=== PATIENT | female | born 1985 | race Caucasian/White ===

== ENCOUNTER 2023-04-01 18:00 | Inpatient (IN) | payer BC ==
[2023-04-01] MEDS ORDERED: HYDROcodone/Acetaminophen 5/325 mg Tablet PO PRN ×2 (22:34)
[2023-04-01] MEDS ORDERED: Diphenoxylate HCl/Atropine Tablet PO PRN ×2 (22:34)
[2023-04-01] MEDS ORDERED: Promethazine HCl 25 MG/ML VIAL IM PRN (22:34)
[2023-04-01] MEDS ORDERED: NS w/ Oxytocin 30 units 500 ML IV SCH ×2 (22:34)
[2023-04-01] MEDS ORDERED: Butorphanol Tartrate 1 MG/ML VIAL SLOW IVP PRN (22:34)
[2023-04-01] MEDS ORDERED: Misoprostol 200 MCG TAB PR PRN (22:34)
[2023-04-01] MEDS ORDERED: Lidocaine 1% (PF) 30 ML VIAL SC PRN (22:34)
[2023-04-01] MEDS ORDERED: CEFAZOLIN 2 GM in Sodium Chloride 0.9% 100 ML IVPB SCH (22:34)
[2023-04-01] MEDS ORDERED: Zolpidem Tartrate 5 MG TAB PO PRN (22:34)
[2023-04-01] MEDS ORDERED: Ibuprofen 800 MG TAB PO PRN (22:34)
[2023-04-01] MEDS ORDERED: Docusate 100 MG CAP PO PRN (22:34)
[2023-04-01] MEDS ORDERED: Acetaminophen 500 MG TAB PO PRN (22:34)
[2023-04-01 22:42] VITALS: BMI 44.4
[2023-04-01] MEDS: Lactated Ringer's 1,000 ML IV SCH (22:50)
[2023-04-01 23:13] LABS: Hemoglobin 13.8 g/dL (12.0-15.5); Mean Corpuscular HGB CONC 34.6 g/dL (32.0-36.0); Mean Corpuscular Hemoglobin 30.5 pg (27.0-33.0); Mean Corpuscular Volume 88.3 fl (81.6-98.3); Mean Platelet Volume 9.1 fl (7.4-10.4); Platelet Count 259 10x3/uL (150-450); RBC Distribution Width 14.2 % (11.5-14.5); Red Blood Cell (RBC) Count 4.52 10x6/uL (3.90-5.03); White Blood Cell (WBC) Count 8.8 10x3/uL (3.5-10.5)
[2023-04-01] MEDS: Misoprostol 100 MCG TAB VAG SCH (23:16)
[2023-04-01 23:44] LABS: HBSAg Index 0.16 S/CO (0-0.99); Hep B Surf Ag - L&D Non-Reactive S/CO (NonReactive); Syphilis Antibody Nonreactive (Nonreactive); Syphilis Antibody Index 0.05 S/CO (<1.00 Non-Reactive)
[2023-04-01 23:50] LABS: HIV (1/2) Antibody/Antigen Non-Reactive (NonReactive); HIV 1/2 INDEX 0.06 S/CO (<1.00)
[2023-04-01] MEDS ORDERED: ALPRAZolam 0.25 MG TAB PO PRN (23:52)
[2023-04-02] MEDS: CEFAZOLIN 2 GM in Sodium Chloride 0.9% 100 ML IVPB SCH ×4 (00:17→23:36)
[2023-04-02 01:20] LABS: Glucose 150 mg/dL (70-105)
[2023-04-02] MEDS: hydrALAZINE 20 MG/ML VIAL SLOW IVP PRN ×2 (03:27→15:47)
[2023-04-02] MEDS ORDERED: Labetalol HCl 100 MG/20 ML VIAL ONE (03:45)
[2023-04-02] MEDS ORDERED: Labetalol HCl 100 MG/20 ML VIAL SLOW IVP SCH (04:15)
[2023-04-02] MEDS ORDERED: fentaNYL 50 mcg/mL 1 mL Vial ONE (04:41)
[2023-04-02] MEDS: Ondansetron PF 4 MG/2 ML Vial IVP PRN (04:43)
[2023-04-02 04:56] LABS: PTT 27.3 sec (22.0-33.0); Prothrombin Time 10.6 sec (9.5-12.1)
[2023-04-02 05:00] LABS: ALT (SGPT) 21 U/L (8-55); AST (SGOT) 21 U/L (5-34); Albumin 3.7 g/dL (3.5-5.0); Alkaline Phosphatase 87 U/L (40-110); Bilirubin, Direct 0.1 mg/dL (0.1-0.3); Bilirubin, Total 0.3 mg/dL (0.2-1.2); Protein, Total 6.7 g/dL (6.0-8.3)
[2023-04-02] MEDS ORDERED: fentaNYL 50 mcg/mL 1 mL Vial SLOW IVP PRN (05:24)
[2023-04-02] MEDS: Lactated Ringer's 1,000 ML IV SCH (05:26)
[2023-04-02] MEDS: Misoprostol 100 MCG TAB VAG SCH ×5 (05:28→21:12)
[2023-04-02] MEDS ORDERED: Lorazepam 2 MG/ML VIAL SLOW IVP PRN (05:30)
[2023-04-02] MEDS ORDERED: Labetalol HCl 100 MG/20 ML VIAL SLOW IVP PRN ×3 (05:30)
[2023-04-02] MEDS ORDERED: Calcium Gluc 4.6 MEQ/10 ML (100 MG/ML) SLOW IVP PRN (05:30)
[2023-04-02] MEDS ORDERED: hydrALAZINE 20 MG/ML VIAL SLOW IVP PRN (05:30)
[2023-04-02 05:33] LABS: Creatinine, Urine 162.67 mg/dL (47-110)
[2023-04-02] MEDS ORDERED: glyBURIDE 5 MG TAB PO SCH (07:30)
[2023-04-02] MEDS: Levothyroxine Sodium 50 MCG TAB PO SCH (07:35)
[2023-04-02] MEDS: Levothyroxine Sodium 125 MCG TAB PO SCH (07:35)
[2023-04-02] MEDS: fentaNYL 2 mcg/Ropivacaine 0.2% Epidural 100 ML CADD EPIDURAL SCH ×3 (08:14→23:51)
[2023-04-02] MEDS ORDERED: Labetalol HCl 200 MG TAB PO SCH ×2 (09:00)
[2023-04-02] MEDS ORDERED: Lantus 1000 UNITS/10 ML VIAL SC SCH (09:00)
[2023-04-02] MEDS ORDERED: Acetaminophen 325 MG TAB PO PRN (10:10)
[2023-04-02] MEDS ORDERED: ePHEDrine Sulfate 50 MG/10 ML VIAL SLOW IVP PRN (10:10)
[2023-04-02] MEDS ORDERED: Ondansetron PF 4 MG/2 ML Vial IVP PRN (10:10)
[2023-04-02] MEDS ORDERED: diphenhydrAMINE 50 MG/ML VIAL IVP PRN (10:10)
[2023-04-02] MEDS ORDERED: Lactated Ringer's 500 ML IV PRN (10:10)
[2023-04-02] MEDS ORDERED: Naloxone HCl 0.4 mg/ml Vial IVP PRN ×2 (10:10)
[2023-04-02] MEDS ORDERED: Promethazine HCl 25 MG/ML VIAL IM PRN (10:10)
[2023-04-02] MEDS ORDERED: Moisturizing Cream (Eucerin) 113 GM JAR TOP PRN (10:10)
[2023-04-02] MEDS ORDERED: Communication Order-Pharmacy FS SCH (10:15)
[2023-04-02 14:31] LABS: Uric Acid 5.3 mg/dL (2.6-6.0)
[2023-04-02] MEDS ORDERED: Acetaminophen 500 MG TAB PO SCH (15:00)
[2023-04-02] MEDS: Labetalol HCl 200 MG TAB PO SCH ×2 (15:02→20:55)
[2023-04-02] MEDS ORDERED: fentaNYL/Ropivacaine Epidural 100 ML ONE (16:41)
[2023-04-02] MEDS: Acetaminophen 325 MG TAB PO SCH (20:55)
[2023-04-02 20:56] VITALS: TEMP 99.8
[2023-04-03] MEDS: Misoprostol 100 MCG TAB VAG SCH ×2 (00:58→04:57)
[2023-04-03] MEDS: Levothyroxine Sodium 50 MCG TAB PO SCH ×2 (06:00→06:01)
[2023-04-03] MEDS: Acetaminophen 325 MG TAB PO SCH (06:01)
[2023-04-03] MEDS: CEFAZOLIN 2 GM in Sodium Chloride 0.9% 100 ML IVPB SCH ×2 (06:01→15:30)
[2023-04-03] MEDS: Levothyroxine Sodium 125 MCG TAB PO SCH (06:01)
[2023-04-03] MEDS: fentaNYL 2 mcg/Ropivacaine 0.2% Epidural 100 ML CADD EPIDURAL SCH ×2 (07:32→14:17)
[2023-04-03] MEDS ORDERED: Bupivacaine 0.25% HCL 30 ML VIAL ONE (08:00)
[2023-04-03] MEDS: Labetalol HCl 200 MG TAB PO SCH ×3 (09:04→20:57)
[2023-04-03] MEDS ORDERED: fentaNYL/Ropivacaine Epidural 100 ML ONE (14:01)
[2023-04-03] MEDS ORDERED: ALPRAZolam 0.5 MG TAB PO PRN ×2 (15:45→17:16)
[2023-04-03] MEDS: Ondansetron PF 4 MG/2 ML Vial IVP PRN (16:54)
[2023-04-03] MEDS ORDERED: Ondansetron PF 4 MG/2 ML Vial ONE (16:55)
[2023-04-03] MEDS ORDERED: diphenhydrAMINE 25 MG CAP PO PRN (17:13)
[2023-04-03] MEDS ORDERED: Zolpidem Tartrate 5 MG TAB PO PRN (17:13)
[2023-04-03] MEDS ORDERED: Acetaminophen/Codeine 30-300mg Tablet PO PRN ×2 (17:13)
[2023-04-03] MEDS ORDERED: Milk Of Magnesia 30 ML UDCUP PO PRN (17:13)
[2023-04-03] MEDS ORDERED: hydrALAZINE 20 MG/ML VIAL SLOW IVP PRN (17:13)
[2023-04-03] MEDS ORDERED: NS w/ Oxytocin 30 units 500 ML IV SCH (17:15)
[2023-04-03] MEDS ORDERED: Witch Hazel-Glycerin 1 EACH JAR TOP PRN (17:15)
[2023-04-03] MEDS: Ibuprofen 800 MG TAB PO SCH (20:57)
[2023-04-03] MEDS ORDERED: Docusate 100 MG CAP PO SCH (21:00)
[2023-04-04] MEDS ORDERED: Lantus 1000 UNITS/10 ML VIAL SC SCH ×2 (00:45→09:00)
[2023-04-04 05:01] LABS: #Eosinphils 0.1 10x3/uL (0.0-0.5); #Neutrophils 10.7 10x3/uL (1.5-8.4); %Basophils 0.2 % (0.0-2.0); %Eosinophils 0.9 % (0.0-6.0); %Lymphocytes 11.8 % (18.0-47.0); %Monocytes 7.3 % (0.0-10.0); %Neutrophils 79.1 % (40.0-75.0); Hemoglobin 11.8 g/dL (12.0-15.5); Mean Corpuscular HGB CONC 33.1 g/dL (32.0-36.0); Mean Corpuscular Hemoglobin 30.9 pg (27.0-33.0); Mean Corpuscular Volume 93.2 fl (81.6-98.3); Mean Platelet Volume 9.1 fl (7.4-10.4); Platelet Count 206 10x3/uL (150-450); RBC Distribution Width 14.3 % (11.5-14.5); Red Blood Cell (RBC) Count 3.82 10x6/uL (3.90-5.03); White Blood Cell (WBC) Count 13.5 10x3/uL (3.5-10.5)
[2023-04-04] MEDS ORDERED: Levothyroxine Sodium 100 MCG TAB PO SCH (06:00)
[2023-04-04] MEDS ORDERED: Levothyroxine Sodium 75 MCG TAB PO SCH (06:00)
[2023-04-04] MEDS: Ibuprofen 800 MG TAB PO SCH (06:17)
[2023-04-04] MEDS ORDERED: glyBURIDE 5 MG TAB PO SCH (08:00)
[2023-04-04] MEDS: Labetalol HCl 200 MG TAB PO SCH (09:22)
[2023-04-04 09:23] VITALS: BP 124/75
[2023-04-04 16:58] LABS: Reference Lab Name LABCORP
[2023-04-04 16:59] LABS: Ref Lab Test Ordered TISSUE MICROARRAY
== END 2023-04-04 11:40 | disposition home or self-care (01) | DRG 805 ==
LOC: CSHLD 22:18
PROVIDERS: ADMIT Obstetrics & Gynecology; ATTEND Obstetrics & Gynecology
PROC: 10E0XZZ Delivery of Products of Conception, External Approach (ICD-10-PCS; principal; 2023-04-03)
PROC: 3E0P7VZ Introduction of Hormone into Female Reproductive, Via Natural or Artificial Opening (ICD-10-PCS; 2023-04-03)
PROC: 3E033VJ Introduction of Other Hormone into Peripheral Vein, Percutaneous Approach (ICD-10-PCS; 2023-04-03)
PROC: 10907ZC Drainage of Amniotic Fluid, Therapeutic from Products of Conception, Via Natural or Artificial Opening (ICD-10-PCS; 2023-04-03)
PROC: 10H07YZ Insertion of Other Device into Products of Conception, Via Natural or Artificial Opening (ICD-10-PCS; 2023-04-03)
DX: O36.4XX0 Maternal care for intrauterine death, not applicable or unspecified (principal); O24.12 Pre-existing type 2 diabetes mellitus, in childbirth; Z37.1 Single stillbirth; O10.92 Unspecified pre-existing hypertension complicating childbirth; E11.9 Type 2 diabetes mellitus without complications; E03.9 Hypothyroidism, unspecified; O99.284 Endocrine, nutritional and metabolic diseases complicating childbirth; O69.89X0 Labor and delivery complicated by other cord complications, not applicable or unspecified; O99.345 Other mental disorders complicating the puerperium; F41.9 Anxiety disorder, unspecified; F32.A Depression, unspecified; Z3A.31 31 weeks gestation of pregnancy; Z79.82 Long term (current) use of aspirin; Z79.4 Long term (current) use of insulin; Z79.899 Other long term (current) drug therapy; Z90.49 Acquired absence of other specified parts of digestive tract
CPT/HCPCS: 36415; 51702; 80076; 82570; 82947; 84156; 84550; 85025; 85027; 85610; 85730; 86780; 86850; 86900; 86901; 87340; 87389; 88307; J0360; J1815; J2405; J2550; J3010; J3490; J7120; S0020